=== PATIENT | female | born 1945 | race Caucasian/White ===

== ENCOUNTER 2023-12-06 05:49 | Day surgery (SDC) | payer MEDICARE ==
[2023-12-05 12:35] LABS: BASOPHILS # (AUTO) 0.1 X10'3 (0-0.2); BASOPHILS % (AUTO) 0.7 % (0-1); EOSINOPHILS # (AUTO) 0.9 X10'3 (0-0.9); EOSINOPHILS % (AUTO) 12.2 % (0-6); HEMATOCRIT 36.6 % (35.0-45.0); HEMOGLOBIN 12.1 g/dl (12.0-16.0); LYMPHOCYTES # (AUTO) 2.1 X10'3 (1.1-4.8); LYMPHOCYTES % (AUTO) 29.7 % (21-51); MEAN CORPUSCULAR HEMOGLOBIN 32.6 PG (27.0-31.0); MEAN PLATELET VOLUME 7.2 FL (7.4-10.4); MONOCYTES # (AUTO) 0.7 X10'3 (0-0.9); MONOCYTES % (AUTO) 10.4 % (2-12); NEUTROPHILS # (AUTO) 3.4 X10'3 (1.8-7.7); PLATELET COUNT 297 X10'3 (140-440); RED BLOOD COUNT 3.69 X10'6 (4.20-5.60); RED CELL DISTRIBUTION WIDTH 13.9 % (11.5-14.5); WHITE BLOOD COUNT 7.2 X10'3 (4.5-11.0)
[2023-12-05 12:44] LABS: ALBUMIN 2.8 G/DL (3.4-5.0); ANION GAP 8 (8-16); BLOOD UREA NITROGEN 11 MG/DL (7-18); BUN/CREATININE RATIO 12.6 (10.0-20.0); CHLORIDE 104 MMOL/L (99-107); CREATININE 0.87 MG/DL (0.40-0.90); GLUCOSE 92 MG/DL (70-104); POTASSIUM 4.9 MMOL/L (3.5-5.1); SODIUM 141 MMOL/L (135-145); TOTAL CARBON DIOXIDE 29.4 MMOL/L (24-32); eGFR 63 ML/MIN
[2023-12-05 12:48] LABS: APTT 27 SECONDS (22-32); PROTHROMBIN TIME 11.1 SECONDS (9.0-12.0)
[~2023-12-06] VITALS: Ht 152.4 cm; Wt 53.8 kg
[2023-12-06] VITALS (11 sets, daily range): BP systolic 110–148; BP diastolic 44–84; PULSE 53–89; RESP 14–18; TEMP 97.9; O2SAT 92–93
[~2023-12-06 05:49] MED LIST: ALBU18HF2 INH; ALBU8.5H17 INH; ATOR-411 PO; ATOR80TA PO; BUDE10.2 INH; CHOL2000 PO; CHOL50004 PO; CLOP75TA15 PO; CLOP75TA34 PO; FISH1CAP15 PO; HYDR-3965 PO; HYDR-4353 PO; LACT1CAP65 PO; LEVO88TA2 PO; LOP25T PO; LOPE1LIQ81 PO; LORA10TA7 PO; LOSA-415 PO; LOSA-416 PO; METO-395 PO; OMEG-182; OMEG-5 PO; OMEP20CA15 PO; SYN0.088T PO; TIOT4MIS5 INH; TRIA10.8; TURM538C PO
[2023-12-06] MEDS ORDERED: LORazepam 0.5 MG tablet PO PRN (06:30)
[2023-12-06] MEDS ORDERED: LOSA100T58 PO (06:35)
[2023-12-06] MEDS ORDERED: ATOR-2 PO (06:44)
[2023-12-06] MEDS ORDERED: POTA-366 PO (06:44)
[2023-12-06] MEDS ORDERED: FURO40TA4 PO (06:44)
[2023-12-06] MEDS ORDERED: TRIA10.8 BOTHNARES (06:44)
[2023-12-06] MEDS ORDERED: MAGN400C PO (06:44)
[2023-12-06] MEDS ORDERED: LEVO88TA7 PO (06:44)
[2023-12-06] MEDS ORDERED: ACET-1008 PO (06:55)
[2023-12-06] MEDS ORDERED: LORA-641 PO (06:55)
[2023-12-06] MEDS ORDERED: MELA3CAP2 PO (06:55)
[2023-12-06] MEDS ORDERED: HYDR50TA65 PO (06:55)
[2023-12-06] MEDS: diphenhydrAMINE 25mg capsule PO PRN (07:06)
[2023-12-06] MEDS: normal saline 1,000 ML IV SCH (07:07)
[2023-12-06] MEDS ORDERED: fentaNYL/PF 50MCG/1 ML 2ML syringe ONE ×2 (07:15→07:21)
[2023-12-06] MEDS ORDERED: iohexol 350 MG/ML 50ML vial IV ONE (07:15)
[2023-12-06] MEDS ORDERED: midazolam 1 mg/ML 2ml injection ONE (07:15)
[2023-12-06] MEDS ORDERED: verapamil 2.5 mg/ml inj IV ONE (07:15)
[2023-12-06] MEDS ORDERED: nitroGLYCERIN 500mcg/5mL D5W 5 ML IV ONE (07:16)
[2023-12-06] MEDS ORDERED: heparin 1,000unit/ml 10ml vial 10 ML ONE (07:16)
[2023-12-06] MEDS ORDERED: iohexol 350MG/ML 100ml bottle IV ONE (07:16)
[2023-12-06] MEDS ORDERED: LIDOcaine 1% (10mg/ml) 2ml vial ONE ×2 (07:17→08:01)
[2023-12-06] MEDS ORDERED: HYDROcodone/acetaminophen 10/325mg tab PO PRN (09:50)
[2023-12-06] MEDS ORDERED: HYDROcodone/acetaminophen 5mg/325mg tablet PO PRN (09:50)
[2023-12-06] MEDS ORDERED: normal saline 1000ml 1,000 ML IV SCH (09:50)
[2023-12-06 11:34] LABS: ISTAT HGB ART 10.5 g/dl (12.0-16.0); ISTAT Hct ART 31 %PCV (35-45); ISTAT O2 SATURATION ARTERIAL 96 % (95-98); ISTAT SOURCE ART
[2023-12-06 12:43] LABS: ISTAT HGB MIX 10.5 g/dl (12.0-16.0); ISTAT Hct MIX 31 %PCV (35-45); ISTAT O2 SATURATION MIX VENOUS 63 % (60-80); ISTAT SOURCE VEN
== END 2023-12-06 14:00 | disposition home or self-care (01) ==
LOC: SSTAY O 05:49
PROVIDERS: ATTEND Internal Medicine Cardiovascular Disease
DX: I25.10 Atherosclerotic heart disease of native coronary artery without angina pectoris (principal); I44.7 Left bundle-branch block, unspecified; I11.0 Hypertensive heart disease with heart failure; I50.22 Chronic systolic (congestive) heart failure; E03.9 Hypothyroidism, unspecified; J44.9 Chronic obstructive pulmonary disease, unspecified; E78.5 Hyperlipidemia, unspecified; I42.0 Dilated cardiomyopathy; I34.0 Nonrheumatic mitral (valve) insufficiency; F17.200 Nicotine dependence, unspecified, uncomplicated; Z79.02 Long term (current) use of antithrombotics/antiplatelets; Z79.890 Hormone replacement therapy; Z79.899 Other long term (current) drug therapy; Z90.89 Acquired absence of other organs; Z95.5 Presence of coronary angioplasty implant and graft; Z98.890 Other specified postprocedural states; Z88.6 Allergy status to analgesic agent; Z88.8 Allergy status to other drugs, medicaments and biological substances
CPT/HCPCS: 36415; 76937; 80048; 82803; 85014; 85025; 85610; 85730; 93005; 93460; 99152; 99153; A4615; A6258; A6402; C1725; C1751; C1769; C1894; J1644; J2001; J2250; J3010; J3490; J7030; Q0163; Q9967; Z7610

== ENCOUNTER 2024-08-20 20:24 | Inpatient (IN) | payer MEDICARE ==
[2024-08-20] VITALS (10 sets, daily range): BP systolic 103–123; BP diastolic 69–79; PULSE 65–88; RESP 14–18; TEMP 97.7; O2SAT 90–100
[~2024-08-20] VITALS: Ht 167.6 cm; Wt 70.5 kg
[~2024-08-20 20:24] MED LIST changes: +ACET-1008 PO; -ALBU8.5H17 INH; +ATOR-2 PO; -ATOR-411 PO; -ATOR80TA PO; -CHOL2000 PO; -CHOL50004 PO; -CLOP75TA15 PO; -FISH1CAP15 PO; +FURO40TA4 PO; -HYDR-3965 PO; -HYDR-4353 PO; +HYDR50TA65 PO; -LACT1CAP65 PO; -LEVO88TA2 PO; +LEVO88TA7 PO; -LOP25T PO; -LOPE1LIQ81 PO; +LORA-641 PO; -LORA10TA7 PO; -LOSA-415 PO; -LOSA-416 PO; +LOSA100T58 PO; +MAGN400C PO; +MELA3CAP2 PO; -OMEG-182; -OMEG-5 PO; -OMEP20CA15 PO; +POTA-366 PO; -SYN0.088T PO; -TIOT4MIS5 INH; -TRIA10.8; -TURM538C PO; +calcium chloride 100 MG/1 ML inj IV ONE; +etomidate 2mg/ml inj. ONE
[2024-08-20] MEDS ORDERED: magnesium hydroxide 30ml (MOM) UD suspension PO PRN (20:50)
[2024-08-20] MEDS ORDERED: ondansetron/PF 4mg/2ml inj IV PRN (20:50)
[2024-08-20] MEDS ORDERED: morphine 2 MG/ML inj. syringe IV PRN (20:50)
[2024-08-20] MEDS ORDERED: acetaminophen 325mg tablet PO PRN (20:50)
[2024-08-20] MEDS ORDERED: morphine 4 MG/ML inj SYRINge IV PRN (20:50)
[2024-08-20 20:51] LABS: EOSINOPHILS # (AUTO) 0.1 X10'3 (0-0.9); EOSINOPHILS % (AUTO) 0.5 % (0-6); HEMOGLOBIN 8.8 g/dl (12.0-16.0); MEAN PLATELET VOLUME 8.7 FL (7.4-10.4); MONOCYTES # (AUTO) 1.3 X10'3 (0-0.9)
[2024-08-20 20:53] LABS: BASOPHILS % (AUTO) 0.4 % (0-1); HEMATOCRIT 27.3 % (35.0-45.0); LYMPHOCYTES # (AUTO) 3.8 X10'3 (1.1-4.8); LYMPHOCYTES % (AUTO) 32.6 % (21-51); MEAN CORPUSCULAR HEMOGLOBIN 34.2 PG (27.0-31.0); MEAN CORPUSCULAR HGB CONC 32.1 g/dL (33.0-36.5); MEAN CORPUSCULAR VOLUME 106.6 FL (78-98); MONOCYTES % (AUTO) 11.2 % (2-12); NEUTROPHILS # (AUTO) 6.5 X10'3 (1.8-7.7); NEUTROPHILS % (AUTO) 55.3 % (42-75); PLATELET COUNT 110 X10'3 (140-440); RED BLOOD COUNT 2.56 X10'6 (4.20-5.60); RED CELL DISTRIBUTION WIDTH 18.5 % (11.5-14.5); WHITE BLOOD COUNT 11.8 X10'3 (4.5-11.0)
[2024-08-20 21:15] LABS: ALBUMIN 2.5 G/DL (3.4-5.0); ANION GAP 9 (8-16); BLOOD UREA NITROGEN 28 MG/DL (7-18); BUN/CREATININE RATIO 18.1 (10.0-20.0); CALCIUM 9.4 MG/DL (8.5-10.1); CHLORIDE 102 MMOL/L (99-107); CREATININE 1.55 MG/DL (0.40-0.90); GLUCOSE 54 MG/DL (70-104); MAGNESIUM 2.9 MG/DL (1.5-2.4); POTASSIUM 5.9 MMOL/L (3.5-5.1); PRO BRAIN NATRIURETIC PEPTIDE 17400 PG/ML (0-450); SODIUM 141 MMOL/L (135-145); TOTAL CARBON DIOXIDE 29.6 MMOL/L (24-32); eCRCL 28 ML/MIN; eGFR 32 ML/MIN
[2024-08-20] MEDS: propofol 1000mg/100ml bottle 100 ML IV PRN (21:15)
[2024-08-20] MEDS: etomidate 2mg/ml inj. IV ONE (21:21)
[2024-08-20] MEDS: LidoCAINE 2% Topical Jelly 11mL syringe (UROJET) TOP ONE ×2 (21:21)
[2024-08-20 21:27] LABS: TOTAL CELLS COUNTED 100
[2024-08-20] MEDS: ipratropium/albuterol 3ml nebule NEB ONE (21:36)
[2024-08-20] MEDS: albuterol 2.5 MG/3 ML nebule ONE (21:37)
[2024-08-20] MEDS: albuterol 2.5 MG/3 ML nebule CONTNEB PRN (21:37)
[2024-08-20] MEDS: normal saline 1000ml 1,000 ML IV ONE (22:01)
[2024-08-20] MEDS: propofol 1000mg/100ml bottle 100 ML IV ONE (22:12)
[2024-08-20] MEDS: ketamine 10mg/ml 20ml inj vial IV ONE (22:12)
[2024-08-20 22:14] LABS: ABG BASE EXCESS -12.6 mmol/L (-2.0-3.0); ABG HCO3 15.2 mmol/L (21.0-28.0); ABG OXYGEN SATURATION 99.1 % (94.0-98.0); ABG PCO2 (T) 42.3 mmHg (32.0-45.0); ABG PH (T) 7.171 (7.350-7.450); ABG PO2 (T) 321.2 mmHg (83.0-108.0); ALLEN'S TEST Modified; FCOHb 0.3 % (0.5-1.5); FHHb 0.9 % (0.0-5.0); FMetHb 0.3 % (0.0-1.5); FO2Hb 98.5 % (94.0-98.0); PATIENT TEMPERATURE 36.5; PEEP 7 cm H2O; RESPIRATORY RATE 14 b/min; TIDAL VOLUME 350 mL; TOTAL HEMOGLOBIN 8.8 G/dl (12.0-16.0)
[2024-08-20] MEDS: methylPREDNISolone sod succ 125mg/2ml vial IV ONE (22:50)
[2024-08-20] MEDS: FENTANYL-0.9 % NACL/PF 100 ML IV SCH (23:05)
[2024-08-20] MEDS: CefTRIAXone/D5W-Rocephin 1gm 50 ML IV ONE (23:11)
[2024-08-20] MEDS: azithromycin/NS 500mg/250ml 250 ML IV ONE (23:11)
[2024-08-21] VITALS (32 sets, daily range): BP systolic 77–124; BP diastolic 47–83; PULSE 39–85; RESP 15–25; O2SAT 18–98
[2024-08-21] MEDS: heparin, porcine 5000 units/ml vial SQ SCH (00:55)
[2024-08-21] MEDS: propofol 1000mg/100ml bottle 100 ML IV SCH (01:30)
[2024-08-21] MEDS: NORepinephrine 8mg/ 250ml NS 250 ML IV SCH (02:13)
[2024-08-21] MEDS: NORepinephrine 8mg/ 250ml NS 250 ML IV ONE (02:13)
[2024-08-21 03:24] LABS: BASOPHILS % (AUTO) 0.2 % (0-1); EOSINOPHILS % (AUTO) 0 % (0-6); HEMATOCRIT 30.5 % (35.0-45.0); HEMOGLOBIN 9.9 g/dl (12.0-16.0); LYMPHOCYTES # (AUTO) 0.5 X10'3 (1.1-4.8); LYMPHOCYTES % (AUTO) 3.8 % (21-51); MEAN CORPUSCULAR HEMOGLOBIN 34.4 PG (27.0-31.0); MEAN CORPUSCULAR HGB CONC 32.3 g/dL (33.0-36.5); MEAN CORPUSCULAR VOLUME 106.5 FL (78-98); MEAN PLATELET VOLUME 8.4 FL (7.4-10.4); MONOCYTES # (AUTO) 1.2 X10'3 (0-0.9); MONOCYTES % (AUTO) 10.1 % (2-12); NEUTROPHILS # (AUTO) 10.3 X10'3 (1.8-7.7); NEUTROPHILS % (AUTO) 85.9 % (42-75); PLATELET COUNT 136 X10'3 (140-440); RED BLOOD COUNT 2.87 X10'6 (4.20-5.60); RED CELL DISTRIBUTION WIDTH 18.1 % (11.5-14.5)
[2024-08-21 03:45] LABS: ALBUMIN/GLOBULIN RATIO 0.9 (1.1-1.5); ALKALINE PHOSPHATASE 467 IU/L (46-116); ANION GAP 11 (8-16); BILIRUBIN,TOTAL 2.3 MG/DL (0.1-1.0); BLOOD UREA NITROGEN 27 MG/DL (7-18); BUN/CREATININE RATIO 18.8 (10.0-20.0); CALCIUM 8.4 MG/DL (8.5-10.1); CHLORIDE 104 MMOL/L (99-107); CREATININE 1.44 MG/DL (0.40-0.90); MAGNESIUM 3.7 MG/DL (1.5-2.4); PHOSPHORUS 5.7 MG/DL (2.3-4.5); POTASSIUM 5.3 MMOL/L (3.5-5.1); SODIUM 139 MMOL/L (135-145); TOTAL CARBON DIOXIDE 23.9 MMOL/L (24-32); TOTAL PROTEIN 6.4 G/DL (6.4-8.2); eCRCL 31 ML/MIN; eGFR 35 ML/MIN
[2024-08-21 03:50] LABS: ALANINE AMINOTRANSFERASE 2557 U/L (12-78); ASPARTATE AMINO TRANSFERASE 949 U/L (10-37)
[2024-08-21 03:52] LABS: GLUCOSE 22 MG/DL (70-104)
[2024-08-21] MEDS ORDERED: hydrocortisone sod succ/PF 100mg/2ml inj. IV SCH (04:00)
[2024-08-21] MEDS: dextrose 50%-water 50ml dispensing syringe IV ONE ×3 (04:07→04:17)
[2024-08-21] MEDS: hydrocortisone sod succ/PF 100mg/2ml inj. IV SCH (04:08)
[2024-08-21 04:11] LABS: ABG BASE EXCESS -10.1 mmol/L (-2.0-3.0); ABG HCO3 16.2 mmol/L (21.0-28.0); ABG OXYGEN SATURATION 94.4 % (94.0-98.0); ABG PH (T) 7.267 (7.350-7.450); ABG PO2 (T) 82.7 mmHg (83.0-108.0); FCOHb 0.3 % (0.5-1.5); FHHb 5.6 % (0.0-5.0); FMetHb 0.3 % (0.0-1.5); FO2Hb 93.8 % (94.0-98.0); MODE AC VC; PATIENT TEMPERATURE 36.2; PEEP 5 cm H2O; RESPIRATORY RATE 18 b/min; TIDAL VOLUME 350 mL; TOTAL HEMOGLOBIN 9.6 G/dl (12.0-16.0)
[2024-08-21] MEDS: normal saline 1000ml 1,000 ML IV SCH (09:00)
[2024-08-21] MEDS ORDERED: potassium Cl 40MEQ/1/2NS 520ml 520 ML IV PRN (11:35)
[2024-08-21] MEDS ORDERED: magnesium sulf-water 2g/50mL 50 ML IV PRN (11:35)
[2024-08-21] MEDS ORDERED: magnesium sulf-water 4G/100mL 100 ML IV PRN (11:35)
[2024-08-21] MEDS ORDERED: magnesium Cl slow-release 64mg tablet PO PRN (11:35)
[2024-08-21] MEDS ORDERED: glucagon, human recombinant 1mg kit SUBCUT PRN (11:35)
[2024-08-21] MEDS ORDERED: dextrose 50%-water 50ml dispensing syringe IV PRN ×2 (11:35)
[2024-08-21] MEDS ORDERED: DEXTROSE 15 GM of carb/4 tabs (each vial/BOTTLE has 4 tablets) PO PRN ×2 (11:35)
[2024-08-21] MEDS ORDERED: potassium Cl 20 mEq SR tablet PO PRN ×2 (11:35)
[2024-08-21] MEDS ORDERED: LEVO100T9 PO (13:06)
[2024-08-21] MEDS ORDERED: METO25TA6 PO (13:08)
[2024-08-21] MEDS: CefTRIAXone/D5W-Rocephin 1gm 50 ML IV SCH (14:37)
[2024-08-21] MEDS: hydrocortisone sod succ/PF 100mg/2ml inj. IV ONE (14:43)
[2024-08-21] MEDS: azithromycin/NS 500mg/250ml 250 ML IV SCH (15:20)
[2024-08-21] MEDS: acetaminophen 325mg tablet PO PRN (16:15)
[2024-08-21] MEDS ORDERED: acetaminophen 325mg/10.15ml oral unit dose solution OGT PRN ×2 (17:22)
[2024-08-21] MEDS ORDERED: magnesium hydroxide 30ml (MOM) UD suspension OGT PRN (17:23)
[2024-08-21] MEDS ORDERED: DEXTROSE 15 GM of carb/4 tabs (each vial/BOTTLE has 4 tablets) OGT PRN ×2 (17:23)
[2024-08-21] MEDS ORDERED: POTASSIUM CHLORIDE 20 MEQ/15 ML oral solution OGT PRN ×2 (17:24)
[2024-08-21] MEDS: ketamine 50mg/5ml syringe IV ONE (17:30)
[2024-08-21] MEDS ORDERED: ketamine 50mg/5ml syringe IV ONE (17:35)
[2024-08-21] MEDS: rocuronium 10mg/ml inj IV ONE ×2 (17:50→17:55)
[2024-08-21] MEDS: fentaNYL/PF 50MCG/1 ML 2ML syringe IV PRN (18:41)
[2024-08-21 19:22] LABS: HEMOGLOBIN A1C 5.5 % (4.5-6.2)
[2024-08-21] MEDS ORDERED: K and/or MAG REPLACEMENT MC SCH (20:00)
[2024-08-21] MEDS ORDERED: DOPamine 400mg/D5W 250ml 250 ML IV SCH (21:20)
[2024-08-21] MEDS ORDERED: DOPamine 400mg/D5W 250ml 250 ML IV ONE (21:21)
== END 2024-08-21 22:07 | DRG 871 ==
LOC: ER 20:25 → ED HOLD 20:52 → CICU 2S 22:30
PROVIDERS: ADMIT Internal Medicine Pulmonary Disease; ATTEND Internal Medicine Pulmonary Disease
PROC: 5A12012 Performance of Cardiac Output, Single, Manual (ICD-10-PCS; principal; 2024-08-20)
PROC: 5A1945Z Respiratory Ventilation, 24-96 Consecutive Hours (ICD-10-PCS; 2024-08-20)
PROC: 0BH17EZ Insertion of Endotracheal Airway into Trachea, Via Natural or Artificial Opening (ICD-10-PCS; 2024-08-20)
PROC: 02HV33Z Insertion of Infusion Device into Superior Vena Cava, Percutaneous Approach (ICD-10-PCS; 2024-08-21)
PROC: B548ZZA Ultrasonography of Superior Vena Cava, Guidance (ICD-10-PCS; 2024-08-21)
DX: A41.9 Sepsis, unspecified organism (principal); J18.9 Pneumonia, unspecified organism; J96.01 Acute respiratory failure with hypoxia; K72.00 Acute and subacute hepatic failure without coma; N17.9 Acute kidney failure, unspecified; E87.20 Acidosis, unspecified; R18.8 Other ascites; Z20.822 Contact with and (suspected) exposure to COVID-19; I46.9 Cardiac arrest, cause unspecified; I45.9 Conduction disorder, unspecified; I25.10 Atherosclerotic heart disease of native coronary artery without angina pectoris; F17.210 Nicotine dependence, cigarettes, uncomplicated; D53.9 Nutritional anemia, unspecified; E87.6 Hypokalemia; E16.2 Hypoglycemia, unspecified; Z95.5 Presence of coronary angioplasty implant and graft
CPT/HCPCS: 31500; 36415; 36600; 70450; 71045; 71250; 80048; 80053; 82803; 82948; 83036; 83735; 83880; 84100; 84145; 84484; 85007; 85018; 85025; 87081; 87502; 87503; 87811; 92950; 93005; 94002; 94003; 94640; 94760; 96361; 96365; 96368; 96375; 99291; A6449; C1751; C1758; G0378; J0171; J0456; J0696; J1644; J1720; J2704; J2919; J3010; J3490; J7030; J7040